=== PATIENT | male | born 1960 | race Caucasian/White ===

== ENCOUNTER 2019-02-07 09:57 | Emergency (ER) | payer SELFPAY ==
[~2019-02-07] VITALS: Ht 165.1 cm; Wt 103.1 kg
[2019-02-07 10:08] VITALS: Ht 165.1 cm; Wt 103.1 kg
[2019-02-07] MEDS ORDERED: SILVER NITRATE SWAB TOP ONE (11:00)
[2019-02-07] MEDS ORDERED: DIPHTH/TET/ACEL PERTUSS (ADULT) 0.5 ML VIAL IM* ONE (11:00)
[2019-02-07] MEDS ORDERED: IBUP800T48 PO (12:44)
[2019-02-07 12:59] VITALS: BP 169/79; PULSE 81; RESP 18
--- NOTE | 2019-02-07 13:17 | ERD ---
ER Documentation Chief Complaint Chief Complaint Lac on left hand thumb; pt states cut by saw an hour ago HPI 59-year-old male presents with a laceration to his left thumb. Patient cut his thumb with a saw earlier today. Patient does not recall his last tetanus shot. He is right-hand dominant. Patient denies any numbness or tingling. He has not taken medications for pain. Denies other medical problems. NKDA. Surgical history denies. Social history denies ROS All systems reviewed and are negative except as per history of present illness. Medications Home Meds Active Scripts Ibuprofen* (Motrin*) 800 Mg Tab, 800 MG PO Q6, #30 TAB Prov:CHRISSY CANSECO PA-C 02/07/19 Allergies Allergies: Coded Allergies: No Known Allergy (Unverified , 02/07/19) PMhx/Soc History of Surgery: No Anesthesia Reaction: No Hx Neurological Disorder: No Hx Respiratory Disorders: No Hx Cardiac Disorders: No Hx Psychiatric Problems: No Hx Miscellaneous Medical Probl: Yes (high cholestoral) Hx Alcohol Use: No Hx Substance Use: No Hx Tobacco Use: No Smoking Status: Never smoker FmHx Family History: No diabetes, No coronary disease, No other Physical Exam Vitals Vital Signs Date Temp Pulse Resp B/P (MAP) Pulse Ox O2 O2 Flow FiO2 Time Delivery Rate 02/07/19 98.2 81 18 169/79 98 Room Air 12:59 (109) 02/07/19 98.5 85 18 185/93 97 10:08 (123) Physical Exam GENERAL: The patient is well-appearing, well-nourished, in no acute distress CHEST: Clear to auscultation bilaterally. There are no rales, wheezes or rhonchi. HEART: Regular rate and rhythm. No murmurs, clicks, rubs or gallops. EXTREMITIES: Equal pulses bilaterally. There is no peripheral clubbing, cyanosis or edema. No focal swelling or erythema. Full range of motion. Grossly neurovascularly intact. NEUROLOGIC: Alert and oriented. Cranial nerves II through XII intact. Motor strength in all 4 extremities with 5 out of 5 strength. Sensation grossly intact. SKIN: Fingertip avulsion without bone involvement to the left thumb. Distal portion of the nail is missing. Results 24 hrs Current Medications Medications Dose Sig/Ciro Start Time Status Last (Trade) Ordered Route PRN Stop Time Admin Dose Reason Admin Diphtheria/ 0.5 ml ONCE ONCE 02/07/19 DC 02/07/19 Tetanus/Acell IM* 11:00 10:50 Pertussis 02/07/19 11:01 (Adacel) Silver 4 stick ONCE ONCE 02/07/19 DC Nitrate TOP 11:00 (Silver 02/07/19 11:01 Nitrate Swabs) Procedures/MDM PROCEDURE: XR Right thumb CLINICAL INDICATION: Pain status post injury with laceration TECHNIQUE: 3 views of the right thumb were obtained. COMPARISON: No prior studies are available for comparison. FINDINGS: There is foreshortening of the distal tip of the first digit suggesting laceration / soft tissue amputation. No underlying radiopaque foreign body or acute fracture is seen. Alignment is maintained. There are mild degenerative changes from the base of the thumb to the first IP joint. IMPRESSION: Soft tissue defect at the distal tip of the right thumb, without radiopaque foreign body or acute fracture seen. Mild degenerative changes. ER Course: Digital block using plain lidocaine was injected to the left thumb. Patient was adequately anesthetized and site was clean. Silver nitrate was applied to the left thumb and Dermabond was applied. Bandage placed after. Tetanus given ED. MDM: 59-year-old male presenting with skin avulsion to the left distal thumb. There is no bone involvement. Patient did not have any tendon or ligament injuries. Site was bandaged appropriately. Patient is discharged with recommendations of returning if symptoms change or worsen. All questions answered at discharge Departure Diagnosis: Primary Impression: Laceration Condition: Stable Patient Instructions: Laceration, Hand Referrals: [facility] YOU HAVE RECEIVED A MEDICAL SCREENING EXAM AND THE RESULTS INDICATE THAT YOU DO NOT HAVE A CONDITION THAT REQUIRES URGENT TREATMENT IN THE EMERGENCY DEPARTMENT. FURTHER EVALUATION AND TREATMENT OF YOUR CONDITION CAN WAIT UNTIL YOU ARE SEEN IN YOUR DOCTORS OFFICE WITHIN THE NEXT 1-2 DAYS. IT IS YOUR RESPONSIBILITY TO MAKE AN APPOINTMENT FOR FOLOW-UP CARE. IF YOU HAVE A PRIMARY DOCTOR --you should call your primary doctor and schedule an appointment IF YOU DO NOT HAVE A PRIMARY DOCTOR YOU CAN CALL OUR PHYSICIAN REFERRAL HOTLINE AT IF YOU CAN NOT AFFORD TO SEE A PHYSICIAN YOU CAN CHOSE FROM THE FOLLOWING [facility] [address] [facility] [address] [facility] [facility] [address] [facility] [address] [facility] [address] [facility]. [facility] [address] Additional Instructions: FOLLOW UP WITH YOUR PRIMARY CARE PHYSICIAN TOMORROW.Return to this facility if you are not improving as expected. CHRISSY CANSECO PA-C Feb 07, 2019 13:17
== END 2019-02-07 13:01 | disposition home or self-care (01) ==
LOC: FTE 09:57
DX: S61.012A Laceration without foreign body of left thumb without damage to nail, initial encounter (principal); W29.3XXA Contact with powered garden and outdoor hand tools and machinery, initial encounter; Y92.9 Unspecified place or not applicable; Z23 Encounter for immunization
CPT/HCPCS: 73140; 90471; 90715